=== PATIENT | female | born 1965 | race Caucasian/White ===

== ENCOUNTER 2019-04-28 19:09 | Emergency (ER) | payer MEDICAID ==
[~2019-04-28] VITALS: Ht 165.1 cm; Wt 95.4 kg
[2019-04-28 21:30] VITALS: BP 155/107
== END 2019-04-28 21:36 | disposition home or self-care (01) ==
LOC: ER 19:09
DX: R05 Cough (principal); J40 Bronchitis, not specified as acute or chronic; E11.9 Type 2 diabetes mellitus without complications; I10 Essential (primary) hypertension
CPT/HCPCS: 71045; 87804; 99284